=== PATIENT | male | born 1965 | race Caucasian/White ===

== ENCOUNTER 2017-02-27 16:42 | Emergency (ER) | payer BC ==
[~2017-02-27] VITALS: Ht 167.6 cm; Wt 56.8 kg
[~2017-02-27 16:42] MED LIST: IBUP-1985 PO
[2017-02-27] MEDS ORDERED: ketorolac trometh. 30mg/ml inj. IM ONE (17:30)
[2017-02-27] MEDS ORDERED: HYDR-565 PO (18:23)
[2017-02-27 18:39] VITALS: BP 147/92
== END 2017-02-27 18:42 | disposition left against medical advice (07) ==
LOC: ER 16:43
DX: R07.81 Pleurodynia (principal); J44.9 Chronic obstructive pulmonary disease, unspecified; F15.10 Other stimulant abuse, uncomplicated; Z98.890 Other specified postprocedural states; W10.8XXA Fall (on) (from) other stairs and steps, initial encounter; Y93.89 Activity, other specified; Y99.8 Other external cause status; Y92.89 Other specified places as the place of occurrence of the external cause
CPT/HCPCS: 71046; 96372; 99284; J1885

== ENCOUNTER 2017-08-27 08:30 | Emergency (ER) | payer BC ==
[~2017-08-27] VITALS: Ht 170.2 cm; Wt 54.0 kg
[2017-08-27 08:34] VITALS: BP 139/87
[2017-08-27] MEDS ORDERED: IBUP-1985 PO (10:19)
== END 2017-08-27 10:25 | disposition home or self-care (01) ==
LOC: ER 08:31
DX: M79.89 Other specified soft tissue disorders (principal); M79.671 Pain in right foot; F15.90 Other stimulant use, unspecified, uncomplicated; J44.1 Chronic obstructive pulmonary disease with (acute) exacerbation; Z79.899 Other long term (current) drug therapy; Z98.890 Other specified postprocedural states
CPT/HCPCS: 73610; 73630; 99284; L4360

== ENCOUNTER 2019-07-14 12:49 | Emergency (ER) | payer BC, MEDICAID ==
[~2019-07-14] VITALS: Ht 170.2 cm; Wt 61.5 kg
[2019-07-14] MEDS ORDERED: ketorolac trometh. 30mg/ml inj. IM ONE (13:30)
[2019-07-14 13:38] VITALS: BP 117/72
== END 2019-07-14 13:40 | disposition home or self-care (01) ==
LOC: ER 12:49
DX: M25.512 Pain in left shoulder (principal); G89.29 Other chronic pain; K46.9 Unspecified abdominal hernia without obstruction or gangrene; J44.9 Chronic obstructive pulmonary disease, unspecified; F17.210 Nicotine dependence, cigarettes, uncomplicated; F15.90 Other stimulant use, unspecified, uncomplicated; Z86.19 Personal history of other infectious and parasitic diseases; Z72.89 Other problems related to lifestyle; Z79.899 Other long term (current) drug therapy
CPT/HCPCS: 96372; 99284; J1885

== ENCOUNTER 2019-09-14 23:54 | Emergency (ER) | payer MEDICAID ==
[~2019-09-14] VITALS: Ht 167.6 cm; Wt 55.9 kg
[2019-09-15] MEDS ORDERED: acetaminophen 325mg tablet PO ONE (00:15)
[2019-09-15] MEDS ORDERED: iohexol 300mg/ml 100ml inj. ONE (00:19)
[2019-09-15 00:58] LABS: BASOPHILS # (AUTO) 0.2 X10'3 (0-0.2); BASOPHILS % (AUTO) 1.3 % (0-1); EOSINOPHILS # (AUTO) 0.2 X10'3 (0-0.9); EOSINOPHILS % (AUTO) 1.2 % (0-6); HEMATOCRIT 45.6 % (42.0-52.0); HEMOGLOBIN 15.4 g/dl (14.0-17.9); LYMPHOCYTES % (AUTO) 6.4 % (21-51); MEAN CORPUSCULAR HEMOGLOBIN 32.1 PG (27.0-31.0); MEAN CORPUSCULAR HGB CONC 33.8 g/dL (33.0-36.5); MEAN CORPUSCULAR VOLUME 94.8 FL (78-98); MEAN PLATELET VOLUME 8.5 FL (7.4-10.4); MONOCYTES # (AUTO) 1.2 X10'3 (0-0.9); NEUTROPHILS # (AUTO) 12.7 X10'3 (1.8-7.7); NEUTROPHILS % (AUTO) 83.1 % (42-75); PLATELET COUNT 216 X10'3 (140-440); RED BLOOD COUNT 4.81 X10'6 (4.70-6.10); RED CELL DISTRIBUTION WIDTH 13.9 % (11.5-14.5); WHITE BLOOD COUNT 15.3 X10'3 (4.5-11.0)
[2019-09-15 01:08] LABS: ALBUMIN 3.2 G/DL (3.4-5.0); ANION GAP 8 (8-16); BLOOD UREA NITROGEN 15 MG/DL (7-18); BUN/CREATININE RATIO 12.1 (5.4-32.0); CALCIUM 8.9 MG/DL (8.5-10.1); CHLORIDE 101 MMOL/L (99-107); CREATININE 1.24 MG/DL (0.60-1.10); GLUCOSE 102 MG/DL (70-104); POTASSIUM 3.3 MMOL/L (3.5-5.1); SODIUM 136 MMOL/L (135-145); TOTAL CARBON DIOXIDE 27.2 MMOL/L (24-32); eGFR 61 ML/MIN
[2019-09-15 02:17] VITALS: BP 103/63
[2019-09-15 03:32] LABS: TOTAL CELLS COUNTED 100
[2019-09-15 03:33] LABS: PLATELET ESTIMATE NORMAL
== END 2019-09-15 02:18 | disposition home or self-care (01) ==
LOC: ER 23:54
DX: K40.90 Unilateral inguinal hernia, without obstruction or gangrene, not specified as recurrent (principal); J44.9 Chronic obstructive pulmonary disease, unspecified; G89.29 Other chronic pain; F17.200 Nicotine dependence, unspecified, uncomplicated; F15.90 Other stimulant use, unspecified, uncomplicated; Z86.19 Personal history of other infectious and parasitic diseases; Z98.890 Other specified postprocedural states; Z79.899 Other long term (current) drug therapy; Z72.89 Other problems related to lifestyle
CPT/HCPCS: 36415; 74177; 80048; 85025; 93005; 99285; Q9967

== ENCOUNTER 2019-10-10 04:46 | Emergency (ER) | payer MEDICAID ==
[~2019-10-10] VITALS: Ht 167.6 cm; Wt 63.6 kg
[2019-10-10] MEDS ORDERED: ondansetron/PF 4mg/2ml inj IV ONE ×2 (04:55→05:50)
[2019-10-10] MEDS ORDERED: naloxone 0.4 mg/ml inj IV ONE (05:15)
--- NOTE | 2019-10-10 05:18 | NUR ---
pt began becoming increasingly sleeping and o2 dropped to 88%. edmn baehr notified and pt placed on 3L nc with o2 now 99%
[2019-10-10 05:26] LABS: ALANINE AMINOTRANSFERASE 83 U/L (12-78); ALBUMIN 3.8 G/DL (3.4-5.0); ALBUMIN/GLOBULIN RATIO 0.8 (1.1-1.5); ALKALINE PHOSPHATASE 74 IU/L (46-116); ANION GAP 9 (8-16); ASPARTATE AMINO TRANSFERASE 82 U/L (10-37); BILIRUBIN,TOTAL 0.4 MG/DL (0.1-1.0); BLOOD UREA NITROGEN 19 MG/DL (7-18); CALCIUM 9.5 MG/DL (8.5-10.1); CHLORIDE 105 MMOL/L (99-107); CREATININE 1.36 MG/DL (0.60-1.10); SODIUM 140 MMOL/L (135-145); TOTAL CARBON DIOXIDE 25.8 MMOL/L (24-32); TOTAL PROTEIN 8.3 G/DL (6.4-8.2); eGFR 54 ML/MIN
[2019-10-10 05:29] LABS: TROPONIN I < 0.04 NG/ML (0.0-0.05)
[2019-10-10 05:34] LABS: GLUCOSE 103 MG/DL (70-104); LIPASE 144 U/L (73-393); POTASSIUM 3.7 MMOL/L (3.5-5.1)
[2019-10-10] MEDS ORDERED: naloxone 2mg/2ml inj IV STA (05:46)
[2019-10-10 06:07] LABS: BASOPHILS # (AUTO) 0.1 X10'3 (0-0.2); BASOPHILS % (AUTO) 0.8 % (0-1); EOSINOPHILS # (AUTO) 0.3 X10'3 (0-0.9); EOSINOPHILS % (AUTO) 4.1 % (0-6); HEMATOCRIT 45.2 % (42.0-52.0); HEMOGLOBIN 15.3 g/dl (14.0-17.9); LYMPHOCYTES # (AUTO) 2.6 X10'3 (1.1-4.8); LYMPHOCYTES % (AUTO) 31.7 % (21-51); MEAN CORPUSCULAR HEMOGLOBIN 32.5 PG (27.0-31.0); MEAN CORPUSCULAR VOLUME 95.6 FL (78-98); MEAN PLATELET VOLUME 8.7 FL (7.4-10.4); MONOCYTES # (AUTO) 1.3 X10'3 (0-0.9); MONOCYTES % (AUTO) 16.2 % (2-12); NEUTROPHILS # (AUTO) 3.9 X10'3 (1.8-7.7); NEUTROPHILS % (AUTO) 47.2 % (42-75); PLATELET COUNT 296 X10'3 (140-440); RED BLOOD COUNT 4.73 X10'6 (4.70-6.10); RED CELL DISTRIBUTION WIDTH 14.5 % (11.5-14.5); WHITE BLOOD COUNT 8.2 X10'3 (4.5-11.0)
[2019-10-10] MEDS ORDERED: metoclopramide 5 mg/ml inj IV ONE (06:20)
--- NOTE | 2019-10-10 06:30 | NUR ---
PT STATED NO NAUSEA AT THIS TIME. WILL CONTINUE TO MONITOR TO GIVE PRN. DR POLLOCK AWARE.
[2019-10-10] MEDS ORDERED: iohexol 300mg/ml 100ml inj. ONE (06:42)
--- NOTE | 2019-10-10 07:10 | NUR ---
back from ct
--- NOTE | 2019-10-10 07:40 | NUR ---
PT AWAKENS EASILY AND RESPONDS APPROPRIATELY, NO DISTRESS NOTED. VSS
[2019-10-10] MEDS ORDERED: NALO4SPR BOTHNARES (08:55)
[2019-10-10 09:14] VITALS: BP 114/80
--- NOTE | 2019-10-10 09:17 | NUR ---
pt attempting to call for ride home
== END 2019-10-10 09:50 | disposition home or self-care (01) ==
LOC: ER 04:46
DX: T40.2X1A Poisoning by other opioids, accidental (unintentional), initial encounter (principal); K40.90 Unilateral inguinal hernia, without obstruction or gangrene, not specified as recurrent; R11.2 Nausea with vomiting, unspecified; R10.84 Generalized abdominal pain; J44.9 Chronic obstructive pulmonary disease, unspecified; G89.29 Other chronic pain; F15.90 Other stimulant use, unspecified, uncomplicated; Z86.19 Personal history of other infectious and parasitic diseases; Z98.890 Other specified postprocedural states; Z72.89 Other problems related to lifestyle; Z79.899 Other long term (current) drug therapy; Y92.89 Other specified places as the place of occurrence of the external cause
CPT/HCPCS: 36415; 71045; 74177; 80053; 83690; 84484; 85025; 93005; 96374; 96375; 96376; 99291; J2310; J2405; Q9967

== ENCOUNTER 2020-03-16 07:46 | Emergency (ER) | payer MEDICAID ==
[~2020-03-16] VITALS: Ht 167.6 cm; Wt 59.1 kg
[~2020-03-16 07:46] MED LIST changes: +NALO4SPR BOTHNARES
[2020-03-16] MEDS ORDERED: proparacaine 0.5% ophthalmic drops 15ml RIGHTEYE ONE (09:45)
[2020-03-16] MEDS ORDERED: CIPR2.5D21 RIGHTEYE (10:19)
== END 2020-03-16 10:33 | disposition home or self-care (01) ==
LOC: ER 07:47
DX: S05.01XA Injury of conjunctiva and corneal abrasion without foreign body, right eye, initial encounter (principal); Z20.822 Contact with and (suspected) exposure to COVID-19; R05 Cough; R09.81 Nasal congestion; M79.651 Pain in right thigh; J44.9 Chronic obstructive pulmonary disease, unspecified; G89.29 Other chronic pain; F17.210 Nicotine dependence, cigarettes, uncomplicated; F15.90 Other stimulant use, unspecified, uncomplicated; F11.90 Opioid use, unspecified, uncomplicated; Z72.89 Other problems related to lifestyle; Z86.19 Personal history of other infectious and parasitic diseases; Z79.2 Long term (current) use of antibiotics; Z79.899 Other long term (current) drug therapy; X58.XXXA Exposure to other specified factors, initial encounter; Y93.89 Activity, other specified; Y92.89 Other specified places as the place of occurrence of the external cause; Y99.8 Other external cause status
CPT/HCPCS: 36415; 87635; 99283

== ENCOUNTER 2020-07-05 14:14 | Emergency (ER) | payer MEDICAID ==
[~2020-07-05] VITALS: Ht 170.2 cm; Wt 58.6 kg
[2020-07-05 14:31] VITALS: BP 135/86
[2020-07-05] MEDS ORDERED: TETanus/Pertussis (Acell)/Diphther VAC/PF (Tdap-Adult) 0.5ml syringe IMVAC ONE (15:25)
== END 2020-07-05 15:42 | disposition home or self-care (01) ==
LOC: ER 14:14
DX: S61.211A Laceration without foreign body of left index finger without damage to nail, initial encounter (principal); J44.9 Chronic obstructive pulmonary disease, unspecified; G89.29 Other chronic pain; F15.90 Other stimulant use, unspecified, uncomplicated; F11.90 Opioid use, unspecified, uncomplicated; Z20.3 Contact with and (suspected) exposure to rabies; Z86.19 Personal history of other infectious and parasitic diseases; Z98.890 Other specified postprocedural states; Z72.89 Other problems related to lifestyle; Z79.899 Other long term (current) drug therapy; W45.8XXA Other foreign body or object entering through skin, initial encounter; Y93.89 Activity, other specified; Y92.89 Other specified places as the place of occurrence of the external cause; Y99.8 Other external cause status
CPT/HCPCS: 90471; 90715; 99283

== ENCOUNTER 2021-01-31 14:51 | Emergency (ER) | payer MEDICAID ==
[~2021-01-31] VITALS: Ht 175.3 cm; Wt 88.6 kg
[2021-01-31 17:10] LABS: ALANINE AMINOTRANSFERASE 50 U/L (12-78); ALBUMIN 3.6 G/DL (3.4-5.0); ALBUMIN/GLOBULIN RATIO 0.8 (1.1-1.5); ALKALINE PHOSPHATASE 81 IU/L (46-116); ANION GAP 10 (8-16); ASPARTATE AMINO TRANSFERASE 52 U/L (10-37); BILIRUBIN,TOTAL 1.1 MG/DL (0.1-1.0); BLOOD UREA NITROGEN 13 MG/DL (7-18); BUN/CREATININE RATIO 15.5 (5.4-32.0); CALCIUM 9.3 MG/DL (8.5-10.1); CHLORIDE 102 MMOL/L (99-107); CREATININE 0.84 MG/DL (0.60-1.10); ETHANOL < 0.010 GM/DL (0.0-0.010); GLUCOSE 87 MG/DL (70-104); SODIUM 139 MMOL/L (135-145); TOTAL CARBON DIOXIDE 26.7 MMOL/L (24-32); TOTAL PROTEIN 8.1 G/DL (6.4-8.2); eGFR > 90 ML/MIN
[2021-01-31 17:31] LABS: BASOPHILS # (AUTO) 0.1 X10'3 (0-0.2); BASOPHILS % (AUTO) 0.6 % (0-1); EOSINOPHILS # (AUTO) 0.2 X10'3 (0-0.9); EOSINOPHILS % (AUTO) 1.9 % (0-6); HEMATOCRIT 46.1 % (42.0-52.0); HEMOGLOBIN 15.9 g/dl (14.0-17.9); LYMPHOCYTES # (AUTO) 1.3 X10'3 (1.1-4.8); LYMPHOCYTES % (AUTO) 13.4 % (21-51); MEAN CORPUSCULAR HEMOGLOBIN 31.9 PG (27.0-31.0); MEAN CORPUSCULAR HGB CONC 34.4 g/dL (33.0-36.5); MEAN CORPUSCULAR VOLUME 92.5 FL (78-98); MONOCYTES # (AUTO) 1.2 X10'3 (0-0.9); MONOCYTES % (AUTO) 12.5 % (2-12); NEUTROPHILS # (AUTO) 6.8 X10'3 (1.8-7.7); NEUTROPHILS % (AUTO) 71.6 % (42-75); PLATELET COUNT 304 X10'3 (140-440); RED BLOOD COUNT 4.99 X10'6 (4.70-6.10); RED CELL DISTRIBUTION WIDTH 13.8 % (11.5-14.5); WHITE BLOOD COUNT 9.6 X10'3 (4.5-11.0)
[2021-01-31 18:17] LABS: CLARITY,URINE CLEAR (Clear); COLOR,URINE YELLOW (Yellow); GLUCOSE, URINE NEGATIVE (Neg); KETONES,URINE 40 mg/dl (Neg); LEUKOCYTE ESTERASE ,URINE NEGATIVE (Neg); NITRITES, URINE NEGATIVE (Neg); OCCULT BLOOD,URINE NEGATIVE (Neg); PROTEIN,URINE NEGATIVE (Neg); UROBILINOGEN,URINE 0.2 E.U/dL (0.2-1.0)
[2021-01-31 18:22] LABS: UA COLLECTION TYPE VOIDED
[2021-01-31 18:24] LABS: URINE AMPHETAMINE SCREEN POSITIVE (Neg); URINE BARBITUATE SCREEN NEGATIVE (Neg); URINE BENZODIAZEPINES SCREEN NEGATIVE (Neg); URINE CANNABINOID SCREEN POSITIVE (Neg); URINE COCAINE SCREEN NEGATIVE (Neg); URINE METHADONE SCREEN NEGATIVE (Neg); URINE OPIATE SCREEN POSITIVE (Neg); URINE PHENCYCLIDINE SCREEN NEGATIVE (Neg)
[2021-01-31] MEDS ORDERED: naloxone 2mg/2ml inj IV STA (19:16)
--- NOTE | 2021-01-31 20:22 | NUR ---
CALLED . SHE WILL COME PICK PT UP.
[2021-01-31 21:12] VITALS: BP 154/90
== END 2021-01-31 21:10 | disposition home or self-care (01) ==
LOC: ER 14:52
DX: R41.82 Altered mental status, unspecified (principal); Z20.822 Contact with and (suspected) exposure to COVID-19; F15.10 Other stimulant abuse, uncomplicated; F12.10 Cannabis abuse, uncomplicated; J44.9 Chronic obstructive pulmonary disease, unspecified; G89.29 Other chronic pain; Z86.19 Personal history of other infectious and parasitic diseases; Z72.89 Other problems related to lifestyle; Z79.899 Other long term (current) drug therapy; Z87.01 Personal history of pneumonia (recurrent)
CPT/HCPCS: 36415; 70450; 71045; 80053; 80305; 80320; 81003; 82140; 83605; 84145; 84484; 85025; 87040; 87502; 87503; 87635; 93005; 96374; 99285; C9803; J2310

== ENCOUNTER 2021-09-16 15:12 | Emergency (ER) | payer MEDICAID ==
[~2021-09-16] VITALS: Ht 170.2 cm; Wt 59.0 kg
[2021-09-16 15:53] VITALS: BP 96/59
[2021-09-16] MEDS ORDERED: ondansetron 4mg rapidly disintigrating tab PO ONE (16:40)
[2021-09-16] MEDS ORDERED: oxyCODONE IR 5mg (immed. release) tablet PO ONE (16:40)
== END 2021-09-16 17:10 | disposition home or self-care (01) ==
LOC: ER 15:12
DX: K40.90 Unilateral inguinal hernia, without obstruction or gangrene, not specified as recurrent (principal); J44.9 Chronic obstructive pulmonary disease, unspecified; G89.29 Other chronic pain; F15.90 Other stimulant use, unspecified, uncomplicated; F11.90 Opioid use, unspecified, uncomplicated; Z86.19 Personal history of other infectious and parasitic diseases; Z72.89 Other problems related to lifestyle; Z98.890 Other specified postprocedural states; Z79.899 Other long term (current) drug therapy
CPT/HCPCS: 99283

== ENCOUNTER 2022-02-24 10:57 | Emergency (ER) | payer MEDICAID ==
[~2022-02-24] VITALS: Ht 170.2 cm; Wt 65.0 kg
[2022-02-24 11:05] VITALS: BP 129/97
[2022-02-24] MEDS ORDERED: ketorolac trometh. 30mg/ml inj. IM ONE (12:15)
[2022-02-24] MEDS ORDERED: IBUP-860 PO (12:37)
== END 2022-02-24 13:33 | disposition home or self-care (01) ==
LOC: ER 10:58
DX: M25.562 Pain in left knee (principal); G89.29 Other chronic pain; M54.9 Dorsalgia, unspecified; J44.9 Chronic obstructive pulmonary disease, unspecified; F17.200 Nicotine dependence, unspecified, uncomplicated; F15.10 Other stimulant abuse, uncomplicated; F11.10 Opioid abuse, uncomplicated; Z79.899 Other long term (current) drug therapy; Z79.2 Long term (current) use of antibiotics
CPT/HCPCS: 73564; 96372; 99284; J1885; A6449

== ENCOUNTER 2023-03-02 16:19 | Emergency (ER) | payer MEDICAID ==
[~2023-03-02] VITALS: Ht 170.2 cm; Wt 59.1 kg
[~2023-03-02 16:19] MED LIST changes: +IBUP-860 PO
[2023-03-02] MEDS ORDERED: albuterol 2.5 MG/3 ML nebule NEB ONE (18:35)
[2023-03-02 18:55] VITALS: PULSE 76; RESP 18; O2SAT 96
[2023-03-02 19:00] VITALS: PULSE 75; RESP 18; O2SAT 99
[2023-03-02] MEDS ORDERED: AZIT250T29 PO (19:00)
[2023-03-02] MEDS ORDERED: ALBU18HF2 INH (19:00)
[2023-03-02] MEDS ORDERED: METH4TAB81 PO (19:00)
[2023-03-02 19:13] VITALS: BP 140/84; PULSE 98; RESP 18; TEMP 98.9; O2SAT 99
== END 2023-03-02 19:14 | disposition home or self-care (01) ==
LOC: ER 16:19
DX: J44.1 Chronic obstructive pulmonary disease with (acute) exacerbation (principal); Z20.822 Contact with and (suspected) exposure to COVID-19; F15.90 Other stimulant use, unspecified, uncomplicated; Z79.2 Long term (current) use of antibiotics; Z79.1 Long term (current) use of non-steroidal anti-inflammatories (NSAID); Z79.899 Other long term (current) drug therapy
CPT/HCPCS: 36415; 71045; 87502; 87503; 87811; 93005; 94640; 94760; 99285

== ENCOUNTER 2023-03-16 23:03 | Emergency (ER) | payer MEDICAID ==
[~2023-03-16] VITALS: Ht 170.2 cm; Wt 60.2 kg
[~2023-03-16 23:03] MED LIST changes: +ALBU18HF2 INH; +METH4TAB81 PO
[2023-03-16 23:21] VITALS: BP 110/69; PULSE 88; RESP 19; TEMP 98.5; O2SAT 96
== END 2023-03-17 01:38 | disposition home or self-care (01) ==
LOC: ER 23:04
DX: J06.9 Acute upper respiratory infection, unspecified (principal); Z20.822 Contact with and (suspected) exposure to COVID-19
CPT/HCPCS: 36415; 71045; 87634; 87811; 99284

== ENCOUNTER 2023-05-21 22:27 | Emergency (ER) | payer MEDICAID ==
[~2023-05-21] VITALS: Ht 170.2 cm; Wt 59.1 kg
[2023-05-21 22:36] VITALS: BP 118/67; PULSE 94; RESP 16; TEMP 98.3; O2SAT 97
== END 2023-05-22 00:49 | disposition left against medical advice (07) ==
LOC: ER 22:28
DX: R11.2 Nausea with vomiting, unspecified (principal); R19.7 Diarrhea, unspecified; J11.1 Influenza due to unidentified influenza virus with other respiratory manifestations; Z53.21 Procedure and treatment not carried out due to patient leaving prior to being seen by health care provider
CPT/HCPCS: 99281

== ENCOUNTER 2023-11-21 15:03 | Emergency (ER) | payer MEDICAID ==
[~2023-11-21] VITALS: Ht 162.6 cm; Wt 68.0 kg
[~2023-11-21 15:03] MED LIST changes: +NAPR-56 PO
[2023-11-21 15:06] VITALS: TEMP 97.8
[2023-11-21 17:25] VITALS: BP 143/87; PULSE 84; RESP 16; O2SAT 99
== END 2023-11-21 17:40 | disposition home or self-care (01) ==
LOC: ER 15:04
DX: S92.321A Displaced fracture of second metatarsal bone, right foot, initial encounter for closed fracture (principal); S92.331A Displaced fracture of third metatarsal bone, right foot, initial encounter for closed fracture; S92.341A Displaced fracture of fourth metatarsal bone, right foot, initial encounter for closed fracture; J44.9 Chronic obstructive pulmonary disease, unspecified; F15.10 Other stimulant abuse, uncomplicated; Z88.6 Allergy status to analgesic agent; W22.8XXA Striking against or struck by other objects, initial encounter; Y93.89 Activity, other specified; Y92.89 Other specified places as the place of occurrence of the external cause; Y99.8 Other external cause status
CPT/HCPCS: 73630; 99283; L4360

== ENCOUNTER 2024-01-25 23:04 | Emergency (ER) | payer MEDICAID ==
[~2024-01-25] VITALS: Ht 170.2 cm; Wt 59.1 kg
[~2024-01-25 23:04] MED LIST changes: -NAPR-56 PO
[2024-01-25 23:32] LABS: BASOPHILS # (AUTO) 0.1 X10'3 (0-0.2); BASOPHILS % (AUTO) 0.7 % (0-1); EOSINOPHILS # (AUTO) 0.2 X10'3 (0-0.9); EOSINOPHILS % (AUTO) 2.3 % (0-6); HEMATOCRIT 44.4 % (42.0-52.0); HEMOGLOBIN 15.3 g/dl (14.0-17.9); LYMPHOCYTES # (AUTO) 1.3 X10'3 (1.1-4.8); LYMPHOCYTES % (AUTO) 14.9 % (21-51); MEAN CORPUSCULAR HEMOGLOBIN 33.7 PG (27.0-31.0); MEAN CORPUSCULAR HGB CONC 34.3 g/dL (33.0-36.5); MEAN PLATELET VOLUME 7.9 FL (7.4-10.4); MONOCYTES # (AUTO) 1.5 X10'3 (0-0.9); MONOCYTES % (AUTO) 17.4 % (2-12); NEUTROPHILS # (AUTO) 5.5 X10'3 (1.8-7.7); NEUTROPHILS % (AUTO) 64.7 % (42-75); PLATELET COUNT 323 X10'3 (140-440); RED BLOOD COUNT 4.53 X10'6 (4.70-6.10); RED CELL DISTRIBUTION WIDTH 13.7 % (11.5-14.5); WHITE BLOOD COUNT 8.4 X10'3 (4.5-11.0)
[2024-01-25 23:53] LABS: ALBUMIN 3.2 G/DL (3.4-5.0); ANION GAP 6 (8-16); BLOOD UREA NITROGEN 21 MG/DL (7-18); CALCIUM 9.5 MG/DL (8.5-10.1); CHLORIDE 104 MMOL/L (99-107); CREATININE 1.05 MG/DL (0.60-1.10); MAGNESIUM 1.6 MG/DL (1.5-2.4); POTASSIUM 3.8 MMOL/L (3.5-5.1); PRO BRAIN NATRIURETIC PEPTIDE 59 PG/ML (0-125); SODIUM 140 MMOL/L (135-145); TOTAL CARBON DIOXIDE 29.8 MMOL/L (24-32); eCRCL 63 ML/MIN; eGFR 72 ML/MIN
[2024-01-25 23:55] LABS: GLUCOSE 98 MG/DL (70-104)
[2024-01-26 00:03] LABS: EOSINOPHILS % (MANUAL) 2 % (0-6); LYMPHOCYTES % (MANUAL) 22 % (21-51); MONOCYTES % (MANUAL) 13 % (2-12); NEUTROPHILS % (MANUAL) 63 % (42-75); PLATELET ESTIMATE NORMAL; TOTAL CELLS COUNTED 100
[2024-01-26] MEDS ORDERED: FURO-150 PO (00:07)
[2024-01-26] MEDS: furosemide 20MG tablet PO ONE (00:20)
[2024-01-26 00:28] VITALS: BP 128/77; PULSE 85; RESP 15; TEMP 98.2; O2SAT 99
== END 2024-01-26 00:31 | disposition home or self-care (01) ==
LOC: ER 23:04
DX: R60.9 Edema, unspecified (principal); J44.9 Chronic obstructive pulmonary disease, unspecified; G89.29 Other chronic pain; F15.90 Other stimulant use, unspecified, uncomplicated; Z79.1 Long term (current) use of non-steroidal anti-inflammatories (NSAID); Z79.899 Other long term (current) drug therapy
CPT/HCPCS: 36415; 80048; 83735; 83880; 84484; 85007; 85025; 93005; 99284

== ENCOUNTER 2024-06-23 14:26 | Emergency (ER) | payer MEDICAID ==
[~2024-06-23] VITALS: Ht 165.1 cm; Wt 59.1 kg
[2024-06-23 14:33] VITALS: TEMP 96.9
[2024-06-23] MEDS: ketorolac trometh 15mg/ml vial 15 MG/ML ML IM ONE (14:54)
--- NOTE | 2024-06-23 15:05 | RADIOLOGY REPORT ---
[facility]: DI RIBS,UNILAT INDICATION: CW pain post fall COMPARISON: None TECHNIQUE: Frontal view of the chest and <<>> views of the <<>> ribs history FINDINGS: No focal consolidation, pleural effusion or significant pneumothorax. Normal cardiomediastinal silhou ette. No displaced acute right rib fracture. There is old right 8 and 9th ribs fracture with deformity pos teriorly. There is mild osteopenia IMPRESSION: 1. No acute cardiopulmonary disease. No displaced right rib fracture. 2. Old right 8th and 9th rib fracture posteriorly
[2024-06-23] MEDS ORDERED: HYDR-3965 PO (15:31)
[2024-06-23] MEDS ORDERED: NALO4SPR BOTHNARES (15:31)
[2024-06-23] MEDS ORDERED: ONDA-243 PO (15:31)
--- NOTE | 2024-06-23 15:31 | Physician Documentation ---
History of Present Illness ~ Chief Complaint: Rib pain Stated Complaint: FALL/RIB PAIN Time Seen by MD: 14:37 Primary Medical Doctor: NONE [facility] Male who presents with right-sided chest wall pain after tripping and falling striking his right chest on a bedside table three days ago, patient reports that last night he leaned against hard edge of his bed and felt a �pop� in the area with the pain becoming much worse. Tetanus within 5 Years?: Yes (JUNE 2023) Allergies: Coded Allergies: No Known Allergies (Unverified , 06/23/24) Active Prescriptions See Medication Reconciliation Form. Medication Reconciliation Scheduled Ibuprofen (Ibuprofen), 1 TAB PO Q8H Ibuprofen (Ibu), 1 TAB PO Q4H Methylprednisolone (Medrol Dosepak), 0 PO UD Naloxone HCl (Narcan), 1 SPRAYS BOTHNARES ONCE Naloxone HCl (Narcan), 1 SPRAYS BOTHNARES ONCE Scheduled PRN Albuterol Sulfate (Ventolin Hfa), 2 PUFFS INH Q4HPRN PRN for wheezing Hydrocodone Bit/Acetaminophen 5/325 MG (Odanah 5/325 MG), 1 TAB PO Q6H PRN for pain Ibuprofen (Ibuprofen), 1 TAB PO Q6H PRN for pain ONDANSETRON ODT 4mg tablet (Ondansetron Odt), 1 TAB PO Q6H PRN PRN for nausea/vomiting Past Medical History Past Medical History: COPD, Hepatitis C, Hernia, Chronic Back Pain Past Surgical History: orthopedic surgeries Alcohol Use: Heavy Drug Use: methamphetamine, heroin Lives with: Family Lives In: Home Occupation: employed Review of Systems ROS Right chest wall pain as stated above in the HPI, otherwise all systems are reviewed and negative. Physical Exam Vital Signs: Temperature: 96.9, Source: Temporal, Heart Rate: 78, Respiratory Rate: 17, BP: 116/74, Pulse Oximetry: 98, Weight: 59.090 Oxygen Flow Rate: 0 Physical Exam VITALS: Reviewed and as above. GENERAL: Alert, nontoxic appearing, no apparent distress. RESPIRATORY: No increased work of breathing, no respiratory distress, speaking in full clear sentences, lung sounds clear in all carrasco CHEST: No paradoxical movement, no crepitus, no ecchymosis, no erythema, no obvious deformity CV: Regular rate and rhythm no murmur BACK: No central spinal tenderness GI: Nondistended, no rebound no guarding MUSCULOSKELETAL: No tenderness to palpation of upper or lower extremities Progress Results/Orders Results/Orders Orders - ITZEL LUNA RibsKoffiat (06/23/24 14:35) Completed Orders - ITZEL LUNA [employer] Ketorolac Trometh 15mg/Ml Vial (Toradol (06/23/24 14:35) Ribs,Unilat (06/23/24 14:35) Hydrocodone/Apap 5/325mg Tab (Odanah (06/23/24 15:45) Vital Signs 06/23/24 06/23/24 06/23/24 06/23/24 14:33 14:54 15:01 15:30 Temp 96.9 Pulse 81 78 Resp 18 15 17 15 B/P (MAP) 132/83 116/74 (88) Pulse Ox 95 98 O2 Flow Rate 0 06/23/24 06/23/24 15:55 15:56 Pulse 81 Resp 15 15 B/P (MAP) 118/77 Pulse Ox 97 EKG/XRAY/CT/US/VASC/MRI Chest X-Ray : Additional Comments Exam: RIBPEDRO LUIS [facility] EXAMINATION: DI RIBS,UNILAT INDICATION: CW pain post fall COMPARISON: None TECHNIQUE: Frontal view of the chest and <<>> views of the <<>> ribs history FINDINGS: No focal consolidation, pleural effusion or significant pneumothorax. Normal cardiomediastinal silhouette. No displaced acute right rib fracture. There is old right 8 and 9th ribs fracture with deformity posteriorly. There is mild osteopenia IMPRESSION: 1. No acute cardiopulmonary disease. No displaced right rib fracture. 2. Old right 8th and 9th rib fracture posteriorly Electronically Signed by:MARGIE VAUGHN MD Date & Time: 06/23/24 1503 Dictated by: MARGIE VAUGHN MD Dictation date and time: 06/23/24 1440 I disagree with radiology report and observe an acute fracture of the 6th or 7th right posterior rib Medical Decision Making Findings This 59-year-old male presented with right chest wall pain after falling and striking a bedside table with his ribs, physical exam was reassuring without ecchymosis, crepitus, or evidence of flail chest. X-ray series of ribs was obtained demonstrating right rib fracture, reassuring that there was no evidence of pneumothorax or hemothorax. Patient did not report other injuries and no other injuries found on physical exam. Remainder of physical exam was benign. Vital signs stable. Patient medicated for pain reporting adequate decrease in pain. Patient is appropriate for outpatient follow up. I have discussed with the patient the risks of addiction and overdose associated with use of opioids, including the increased risk of addiction to an opioid for an individual who is suffering from both mental and substance abuse disorders. I have discussed with the patient the danger of taking an opioid with a benzodiazepine, alcohol, or another central nervous system depressant. Patient discharged with Narcan prescription. Differential Dx:Considerations: Include: Chest wall contusion, Flail chest, Pneumothorax, Pulmonary contusion, Tension pneumothorax Departure Time of Disposition: 15:28 Disposition: 01 HOME / SELF CARE / HOMELESS Impression: Primary Impression: Fracture of rib Qualified Codes: S22.31XA - Fracture of one rib, right side, initial encounter for closed fracture Condition: Improved Discharge Instructions: Rib Fracture Additional Instructions: Use ibuprofen and or Tylenol as needed for pain as directed by the [id number] packaging, use the prescribed Odanah as needed for breakthrough or severe pain. As Odanah can cause nausea and some people I have also prescribed you a prescription for Zofran which you may use for nausea associated with the Odanah. Practice the deep breathing and coughing exercises we discussed 3 times an hour while awake to ensure your clearing secretions from your lungs to decrease your chance of developing pneumonia. Please follow up with your primary care provider in the next few days re-evaluation and continued management of your rib pain. Please return to the emergency department for any new or worsening concerning symptoms including but not limited to if you have difficulty breathing, and coughing up blood, or if you develop a fever. If your taking Odanah for pain you will need to stop using your Suboxone for the Odanah to be effective, I recommend discussing this with your primary care provider and your MAT doctor to optimize your pain management at home, please resume taking her Suboxone 24 hours after your last dose of Odanah to avoid going into precipitated withdrawal. I have prescribed you Narcan as well, please use this drug for signs of overdose such as difficulty breathing. You have been prescribed an opioid medication, there are risks of addiction and overdose associated with the use of opioids. The risk of addiction to an opioid for increases for those suffering both from mental health and substance use disorders. The use of an opioid while taking other central nervous system depressants including but not limited to benzodiazepines or alcohol, or other opioids increases the risk of serious side effects that can include overdose or respiratory depression that can lead to serious injury or . Referrals: NO PRIMARY CARE PROVIDER (PCP) Prescriptions Hydrocodone Bit/Acetaminophen 5/325 MG (Odanah 5/325 MG) 5 Mg/325 Mg Tablet 1 TAB PO Q6H PRN for pain for 3 Days, #12 TAB Prov: ITZEL LUNA 06/23/24 ONDANSETRON ODT 4mg tablet (ONDANSETRON ODT) 4 Mg Tab.rapdis 1 TAB PO Q6H PRN PRN for nausea/vomiting for 4 Days, #16 TAB 0 Refills Prov: ITZEL LUNA 06/23/24 Naloxone HCl (Narcan) 4 Mg/Actuation Paulina 1 SPRAYS BOTHNARES ONCE for 1 Day, #1 EA 0 Refills Prov: ITZEL LUNA 06/23/24 Education Educated: Patient Educated regarding: diagnosis, treatment, prognosis, need for follow up Signature Scribe Signature: No scribe Attestation: The note accurately reflects work and decisions made by me.KATYA Arvizu 06/24/24 03:21 ITZEL LUNA June 23, 2024 15:30
[2024-06-23] MEDS: HYDROcodone/acetaminophen 5mg/325mg tablet PO ONE (15:55)
[2024-06-23 15:56] VITALS: BP 118/77; PULSE 81; RESP 15; O2SAT 97
== END 2024-06-23 16:03 | disposition home or self-care (01) ==
LOC: ER 14:27
DX: S22.31XA Fracture of one rib, right side, initial encounter for closed fracture (principal); J44.9 Chronic obstructive pulmonary disease, unspecified; F15.90 Other stimulant use, unspecified, uncomplicated; F11.90 Opioid use, unspecified, uncomplicated; W01.0XXA Fall on same level from slipping, tripping and stumbling without subsequent striking against object, initial encounter; Y93.89 Activity, other specified; Y92.89 Other specified places as the place of occurrence of the external cause; Y99.8 Other external cause status
CPT/HCPCS: 71100; 96372; 99283; J1885